=== PATIENT | female | born 1980 | race Caucasian/White ===

== ENCOUNTER 2018-06-10 09:29 | Day surgery (SDC) | payer BC ==
[~2018-06-10] VITALS: Ht 172.7 cm; Wt 68.9 kg
[2018-06-10 10:02] VITALS: BP 119/85
[2018-06-10 10:04] VITALS: BP 119/85
[2018-06-10 10:17] LABS: BASOPHILS # (AUTO) 0.06 x10^3/uL (0-0.1); BASOPHILS % (AUTO) 1 % (0-1); EOSINOPHILS # (AUTO) 0.18 x10^3/uL (0-0.4); EOSINOPHILS % (AUTO) 3 % (1-7); LYMPHOCYTES # (AUTO) 1.76 x10^3/uL (1-3.4); LYMPHOCYTES % (AUTO) 32 % (22-44); MD NO; MEAN CORPUSCULAR HEMOGLOBIN 29.6 pg (27.0-34.8); MEAN CORPUSCULAR HGB CONC 33.1 g/dL (32.4-35.8); MEAN CORPUSCULAR VOLUME 89.6 fL (80-100); MEAN PLATELET VOLUME 7.4 fL (7.4-10.4); MONOCYTES # (AUTO) 0.39 x10^3/uL (0.2-0.8); MONOCYTES % (AUTO) 7 % (2-9); NEUTROPHILS # (AUTO) 3.16 x10^3/uL (1.8-6.8); NEUTROPHILS % (AUTO) 57 % (42-75); PLATELET COUNT 289 x10^3/uL (130-400); RED BLOOD COUNT 4.56 x10^6/uL (3.82-5.3); RED CELL DISTRIBUTION WIDTH 12.8 % (9.6-15.2)
[2018-06-10] MEDS ORDERED: FENTANYL PF 100 MCG/2ML ONE (11:39)
[2018-06-10] MEDS ORDERED: MIDAZOLAM 1 MG/ML, 2ML ONE (11:39)
[2018-06-10] MEDS ORDERED: MISOPROSTOL 200 MCG TABLET ONE (11:50)
[2018-06-10] MEDS ORDERED: SILVER NITRATE STICK TP ONE (11:50)
[2018-06-10] MEDS ORDERED: METHYLERGONOVINE 0.2 MG/ML IM ONE (11:50)
[2018-06-10] MEDS ORDERED: OXYTOCIN 10 UNITS/ML, 1ML ONE (11:50)
[2018-06-10] MEDS ORDERED: KETOROLAC 30 MG/1 ML ONE (12:28)
[2018-06-10] MEDS ORDERED: DEXAMETHASONE 4 MG/ML, 1ML ONE (13:05)
[2018-06-10] MEDS ORDERED: ONDANSETRON 2MG/ML, 2ML ONE (13:05)
[2018-06-10] MEDS ORDERED: PROPOFOL 10 MG/ML, 20ML ONE (13:05)
[2018-06-10] MEDS ORDERED: CEFAZOLIN 1,000 MG ONE (13:05)
[2018-06-10] MEDS ORDERED: DIAZEPAM 5 MG/ML, 2ML IVPush PRN (13:30)
[2018-06-10] MEDS ORDERED: PROMETHAZINE 25 MG/ML, 1ML IV PRN (13:30)
[2018-06-10] MEDS ORDERED: ONDANSETRON ODT 8 MG PO PRN (13:30)
[2018-06-10] MEDS ORDERED: FENTANYL PF 100 MCG/2ML IV PRN (13:30)
[2018-06-10] MEDS ORDERED: ACETAMINOPHEN 325 MG TABLET PO PRN (13:30)
[2018-06-10] MEDS ORDERED: OXYcodone 5 MG/5 ML ORAL.SOL UDC PO PRN (13:30)
[2018-06-10] MEDS ORDERED: ONDANSETRON 2MG/ML, 2ML IV PRN ×3 (13:30→15:00)
[2018-06-10 14:12] VITALS: BP 115/81
[2018-06-10] MEDS ORDERED: HYDROmorphone 1 MG/ML, 1ML IV PRN ×2 (14:30→15:00)
[2018-06-10] MEDS ORDERED: KETOROLAC 30 MG/1 ML IV PRN ×2 (14:30→15:00)
[2018-06-10] MEDS ORDERED: OXYcodone/APAP 5/325MG TABLET PO PRN ×2 (14:30→15:00)
[2018-06-10] MEDS ORDERED: OXYC-302 PO (14:57)
[2018-06-10] MEDS ORDERED: IBUP200T49 PO (14:57)
== END 2018-06-10 16:15 | disposition home or self-care (01) ==
LOC: OR 09:29 → 4NOR 09:30 → OR 16:15
PROVIDERS: ATTEND Obstetrics & Gynecology
DX: O02.1 Missed abortion (principal); Z3A.10 10 weeks gestation of pregnancy
CPT/HCPCS: 36415; 59820; 85025; 86850; 86900; 88305; 93005; J0690; J1100; J1885; J2210; J2250; J2405; J2704; J3010; G0378; J2590

== ENCOUNTER 2018-09-19 20:20 | Emergency (ER) | payer BC ==
[~2018-09-19] VITALS: Ht 172.7 cm; Wt 72.1 kg
[~2018-09-19 20:20] MED LIST: IBUP200T49 PO; OXYC-302 PO
[2018-09-19 20:50] LABS: BASOPHILS # (AUTO) 0.15 x10^3/uL (0-0.1); BASOPHILS % (AUTO) 2 % (0-1); EOSINOPHILS # (AUTO) 0.15 x10^3/uL (0-0.4); EOSINOPHILS % (AUTO) 2 % (1-7); LYMPHOCYTES # (AUTO) 2.69 x10^3/uL (1-3.4); LYMPHOCYTES % (AUTO) 29 % (22-44); MD NO; MEAN CORPUSCULAR HEMOGLOBIN 30.1 pg (27.0-34.8); MEAN CORPUSCULAR HGB CONC 33.7 g/dL (32.4-35.8); MEAN CORPUSCULAR VOLUME 89.2 fL (80-100); MEAN PLATELET VOLUME 7.7 fL (7.4-10.4); MONOCYTES % (AUTO) 8 % (2-9); NEUTROPHILS # (AUTO) 5.72 x10^3/uL (1.8-6.8); NEUTROPHILS % (AUTO) 61 % (42-75); PLATELET COUNT 295 x10^3/uL (130-400); RED BLOOD COUNT 4.26 x10^6/uL (3.82-5.3); RED CELL DISTRIBUTION WIDTH 12.6 % (9.6-15.2)
[2018-09-19 21:00] LABS: ALANINE AMINOTRANSFERASE 17 U/L (12-78); ALBUMIN 3.5 g/dL (3.4-5.0); ANION GAP 8 mmol/L (5-15); CALCIUM 8.8 mg/dL (8.5-10.1); CHLORIDE 107 mmol/L (98-107); CREATININE 0.76 mg/dL (0.55-1.02)
[2018-09-19 21:17] LABS: ALKALINE PHOSPHATASE 57 U/L (45-117); BILIRUBIN,TOTAL 0.2 mg/dL (0.2-1.0); TOTAL PROTEIN 7.1 g/dL (6.4-8.2)
[2018-09-19 21:50] VITALS: BP 110/74
[2018-09-19 22:34] LABS: MICROSCOPIC AUTO
[2018-09-19 22:37] LABS: CULTURE INDICATED? NO
== END 2018-09-19 22:59 | disposition home or self-care (01) ==
LOC: ED 21:29
DX: O20.0 Threatened abortion (principal)
CPT/HCPCS: 36415; 76801; 80053; 81001; 84702; 85025; 86901; 99284